=== PATIENT | female | born 1945 | race American Indian/Alaskan Native ===

== ENCOUNTER 2018-03-22 08:35 | Outpatient (CLI) | payer MEDICARE ==
--- NOTE | 2018-03-22 12:46 | Mammography Report ---
BONE DEXA:03/22/18 09:15:00 CLINICAL: Postmenopausal COMPARISON: 08/28/15 TECHNIQUE: Two site bone DEXA performed on an Hologic scanner. FINDINGS: The average BMD of the lumbar spine L1-L3 is 1.204g/cm squared with a T-score of +1.7 and a Z-score of +3.1. The L4 vertebral body was excluded as an outlier because of endplate sclerosis at L4-5. This compares to 1.183 g/cm squared on the last exam and represents a +1.8% change in BMD. The average BMD of the left hip is 0.752g/cm squared with a T-score =-1.6 and a Z score of -0.6.This compares to 0.741g/cm squared on the last exam and represents a +1.5% change in BMD. IMPRESSION: WHO classification: Normal with average fracture risk based on lumbar spine measurements. A slight improvement in spine BMD compared to baseline. WHO classification: Osteopenia with increased fracture risk based on left hip measurements. A slight improvement in left hip BMD compared to baseline. The FRAX 10 year fracture probability for a major osteoporotic fracture is 4.2%. The FRAX 10 year fracture probability for hip fracture is 0.6%. Note: FRAX version 3.01. Fracture probability calculated for an untreated patient. Fracture probability may be lower if the patient has received treatment. RECOMMENDATION: Clinical correlation and routine screening. DEFINITIONS: BMD = Bone Mineral Density T-score = BMD related to mean peak bone mass of young adult (mean expressed in Standard Deviation) Z-score = Age matched BMD expressed in SD World Health Organization (WHO) Diagnostic Criteria Normal T-score > -1 SD Osteopenia T-score between -1 and -2.4 SD Osteoporosis T-score -2.5 SD or below NOTE: BMD is not the only risk factor for fracture; also consider factors such as the patient's age, risk of falling, previous osteoporotic fracture, family history of osteoporotic fractures, current smoker, and low body weight. All treatment decisions require clinical judgment and consideration of individual patient factors, including patient preferences, comorbidities, previous drug use and wrist factors not captured in the FRAX model (e.g. frailty, falls, vitamin D deficiency, increased bone turnover, interval significant decline in BMD). Z-scores are not calculated if >80 years of age.
--- NOTE | 2018-03-22 12:53 | Mammography Report ---
BILATERAL DIGITAL SCREENING MAMMOGRAM WITH CAD: 03/22/18 08:35:00 CLINICAL: Routine screening.Breast cancer survivor status post left partial mastectomy and radiation therapy in 1999. COMPARISON:06/20/17 [facility] mammogram FINDINGS: The breasts are mostly fatty. A left upper posterior postsurgical scar requires additional imaging. More scar is included on this exam and there is more density at the scar. A left upper periareolar parenchymal asymmetry is unchanged. The right breast is negative. IMPRESSION: The left postsurgical scar needs additional imaging. BI-RADS CATEGORY: 0--Needs Additional Imaging RECOMMENDATION: Recall for a left exaggerated CC view and spot compression views of the left surgical scar. COMMENT: Patient follow-up letters are generated via our [employer] application.
== END 2018-03-22 08:36 | disposition home or self-care (01) ==
LOC: MAMMO 08:35
PROVIDERS: ATTEND Student in an Organized Health Care Education/Training Program
DX: Z12.31 Encounter for screening mammogram for malignant neoplasm of breast (principal); M81.0 Age-related osteoporosis without current pathological fracture; F17.210 Nicotine dependence, cigarettes, uncomplicated
CPT/HCPCS: 77067; 77080

== ENCOUNTER 2018-03-27 14:38 | Outpatient (CLI) | payer MEDICARE ==
--- NOTE | 2018-03-27 16:32 | Mammography Report ---
LEFT DIGITAL DIAGNOSTIC MAMMOGRAM and LEFT BREAST ULTRASOUND: 03/27/18 14:38:00 CLINICAL: Recall to evaluate outer posterior scar. COMPARISON:03/22/18 screening FINDINGS: Exaggerated CC and spot compression MLO and CC views were performed.A posterior outer scar demonstrates partial effacement with spot compression. A focal asymmetry in the anterior outer breast demonstrates satisfactory effacement. Ultrasound of the left breast (including all four quadrants and the retroareolar area) was performed. A probably benign lymph node, nodule or prominent fat lobule at 4 o'clock 7 cm from the nipple measures 5 x 4 x 5 mm. The left breast is otherwise negative. IMPRESSION: Probably benign scar and a probably benign lymph node, nodule or prominent fat lobule at 4 o'clock 7 cm from the nipple. BI-RADS CATEGORY: 3 - - Probably Benign RECOMMENDATION: Six month followup left mammogram and left breast ultrasound. ACR BI-RADS MAMMOGRAPHIC CODES: 0 = Needs additional imaging evaluation; 1 = Negative; 2 = Benign; 3 = Probably benign; 4 = Suspicious; 5 = Malignant; 6 = Known biopsy-proven malignancy COMMENT: 1. Dense breast tissue, i.e., adenosis, fibrocystic changes, etc., may obscure an underlying neoplasm. 2. Approximately 10% of cancers are not detected with mammography. 3. A negative mammography report should not delay biopsy if a clinically suspicious mass is present. COMMENT: Patient follow-up letters are generated via our [employer] application.
== END 2018-03-27 14:39 | disposition home or self-care (01) ==
LOC: MAMMO 14:38
PROVIDERS: ATTEND Student in an Organized Health Care Education/Training Program
DX: R92.2 Inconclusive mammogram (principal)